=== PATIENT | male | born 1985 | race Caucasian/White ===

== ENCOUNTER 2021-04-23 09:10 | Day surgery (SDC) | payer BC, SELFPAY ==
[2021-04-22 09:17] VITALS: BMI 22.4
[2021-04-23 09:42] VITALS: BP 139/65; PULSE 66; RESP 18; TEMP 36.7; O2SAT 100
--- NOTE | 2021-04-23 09:59 | P.PN_ITS ---
[facility] Anesthesia Checklist - Patient Identification Patient Identification: Arm Band, Verbal (Name & ) - Structural Data Admitted From: Home Planned Operative Procedure/s: Vasectomy Consent for Planned Operative Procedure(s) Verified: Yes Verified Documents: Surgical Consent - NPO Status Verified Time NPO: 00:00 - Chart Verification Results Verified: None - Additional verifications Anesthesia Reactions: Yes (red rash) Hx Blood Transfusions: No Blood Transfusion Reaction: No - Cardiovascular Assessment Heart Sounds: S1 & S2 Pulse Rhythm: Regular - Airway Assessment C-Spine Mobility Assessed: Yes TMJ Mobility Assessed: Yes Dentition: Good Dentition - Neurological Assessment Level of Consciousness: Awake, Alert, Appropriate - Anesthesia Plan Anesthesia Risk discussed: Yes ASA Class: I Anesthesia Type: MAC [facility] History Medical History: Denies:: Cancer, Diabetes Mellitus Type 1, Diabetes Mellitus Type 2, Internal Pacemaker, MRSA, Seizures *Have you ever received a pneumonia vaccine?: No *Have you received a flu vaccine this season?: Yes Other Medical History: Denies: Blood Transfusion Reaction Anesthesia experience/problems:: none Laterality Cases: Bilateral: Tonsillectomy Other Surgeries: Yes: No Previous Surgery, Colonoscopy. No: Pacemaker Amputation: No Fractures: Yes - *Social History Last grade of school completed: High school graduate Smoking Status: Never smoker Alcohol Intake: current Alcohol Intake Frequency:: holidays/special occasions only Substance Use Type: denies use *Occupational Status:: employed Housing: house Household Members: spouse, family *Travel in the last 8 weeks: None Family Hx:: Cancer
[2021-04-23 10:49] VITALS: BP 99/63; PULSE 68; RESP 18; TEMP 36.2; O2SAT 97
[2021-04-23 10:59] VITALS: BP 114/68; PULSE 53; RESP 18; TEMP 36.2; O2SAT 95
[2021-04-23 11:09] VITALS: BP 103/58; PULSE 51; RESP 18; TEMP 36.2; O2SAT 97
[2021-04-23 11:34] VITALS: BP 117/68; PULSE 46; RESP 18; TEMP 36.2; O2SAT 98
--- NOTE | 2021-04-23 12:50 | HMH.OPNOTE ---
Date of procedure: 04/23/21 Pre-op Diagnosis:: Sterilization Post-op Diagnosis:: Sterilization Procedure performed:: Vasectomy Surgeon:: Cristian Marcus MD Anesthesia: MAC Estimated blood loss (mL): 3 Clinical Note:: 35-year-old white male presents for vasectomy today. Operative findings:: Physical examination revealed normal scrotum and testicles. Vasectomy went well without complications. Operative note:: Patient taken to the operating suite after informed consent was obtained. He was placed on the operating table in the supine position and monitored anesthesia care was administered. He was prepped and draped in the standard surgical fashion. Physical examination shows normal testicles and epididymis. The left vas was identified and brought up to the midline raphae. Local anesthetic was placed under the skin in the line of the raphae and around the left vas. The midline incision was then made and the tenaculum was used to grasp the vas and it was brought up through the incision. The basal sheath was then incised and the vas proper was dissected from its surrounding adventitial tissue. 1 clip was placed distally and 2 proximally. A 1 cm segment was excised and the basal lumens were cauterized. Hemostasis was achieved of the surrounding tissue and the left vas was dropped back into the left hemiscrotum. The identical procedure was performed on the patient's right side. The right vas was brought up through the same incision and local anesthetic used. After ligation the vas was dropped back into the right hemiscrotum and skin was closed with 3-0 chromic's. Compression dressing applied. Patient tolerated procedure well there are no complications. Condition: stable Disposition: same day Specimens:: vas segments were not sent Complications:: None
== END 2021-04-23 11:34 | disposition home or self-care (01) ==
LOC: OR 09:12
PROVIDERS: Visit Provider Urology
PROC: (CPT 55250; principal; 2021-04-23 10:30)
DX: Z30.2 Encounter for sterilization (principal)
CPT/HCPCS: 55250